=== PATIENT | female | born 1955 | race Caucasian/White ===

== ENCOUNTER 2017-02-02 01:33 | Emergency (ER) | payer OTHER ==
[~2017-02-02 01:33] MED LIST: NAPROXEN SODIU550 M1 PO; PERCOCET 5-3251 EACH PO
[2017-02-02 01:39] VITALS: BP 188/99
--- NOTE | 2017-02-02 01:40 | ED AMS/SEIZURE/WEAK/DIZZY ---
History of Present Illness General Chief Complaint: Altered Mental Status Stated Complaint: mental status change Source: patient Exam Limitations: pt uncooperative Vital Signs & Intake/Output Vital Signs & Intake/Output Vital Signs Date Time Temp Pulse Resp B/P Pulse O2 O2 Flow FiO2 Ox Delivery Rate 02/02 0146 98 Room Air 02/02 0139 95.8 123 16 188/99 98 Room Air Allergies Coded Allergies: Penicillins (Severe, ANAPHYLAXIS 06/20/16) Reconcile Medications Naproxen Sodium 550 MG TABLET 1 TAB PO BID PRN PAin Oxycodone HCl/Acetaminophen (Percocet 5-325 MG Tablet) 1 EACH TABLET 1 TAB PO Q4-6 PRN PAIN Triage Nurses Notes Reviewed? yes Onset: Abrupt Duration: hour(s): Timing: recent history Injury Environment: fci Severity: mild Modifying Factors: Improves With: rest. Associated Symptoms: belligerence HPI: 61 yo woman h/o chronic lyme, chest pain x 10 years, presents from police lock-up after being pulled over for a DUI. Per the police, she reported drinking at least 3 sambuca's. She was pulled over for erratic driving. At the time of her arrest, she was belligerent, aggressive. In the police station, she had an episode of twitching, did not lose consciousness, which lasted a few seconds. She also had an episode where she was not responding to questions but she appeared to be responsive. Upon arrival to the ED, she declines all intervention, including ekg, blood draw , monitors. She states, "I'm fine." Past History Medical History Any Pertinent Medical History? see below for history Neurological: NONE EENT: TMJ Cardiovascular: NONE Respiratory: NONE Gastrointestinal: NONE Hepatic: NONE Renal: NONE Musculoskeletal: fibromyalgia Psychiatric: NONE Endocrine: NONE Blood Disorders: NONE Cancer(s): NONE TRANSPORTATION JOB TITLES/Reproductive: NONE Surgical History Surgical History: none Psychosocial History What is your primary language Citizen Of [place] Family History Hx Contributory? No Review of Systems Review of Systems Constitutional: Reports: no symptoms. EENTM: Reports: no symptoms. Respiratory: Reports: no symptoms. Cardiovascular: Reports: no symptoms. GI: Reports: no symptoms. Genitourinary: Reports: no symptoms. Musculoskeletal: Reports: no symptoms. Skin: Reports: no symptoms. Neurological/Psychological: Reports: no symptoms. Hematologic/Endocrine: Reports: no symptoms. Immunologic/Allergic: Reports: no symptoms. All Other Systems: Reviewed and Negative Physical Exam Physical Exam General Appearance: well developed/nourished, no apparent distress Head: atraumatic, normal appearance Eyes: Bilateral: normal appearance. Ears, Nose, Throat: normal pharynx, normal ENT inspection Neck: normal inspection, supple, full range of motion Respiratory: normal breath sounds, chest non-tender, no respiratory distress, quiet respiration, lungs clear Cardiovascular: regular rate/rhythm, edema Gastrointestinal: normal bowel sounds, soft, non-tender Back: normal inspection, normal range of motion Extremities: normal range of motion Neurologic/Psych: no motor/sensory deficits, awake, alert, oriented x 3 Skin: intact, normal color, warm/dry Core Measures ACS in differential dx? No CVA/TIA Diagnosis: No Severe Sepsis Present: No Septic Shock Present: No Progress Differential Diagnosis: alcohol intoxication, I doubt sycnope/cardiac issues, primary neurological event like seizures. Plan of Care: Ms Gallego is adamant that she does not want any blood draws, ekg, breathylizer, or any intervention of any sort. Initial ED EKG: patient declines Departure Departure Disposition: HOME OR SELF CARE Condition: Stable Clinical Impression Primary Impression: Alcohol intoxication Referrals: PATIENT HAS NO PRIMARY CARE DR (PCP/Family) Departure Forms: Customer Survey General Discharge Information Comments 02/02/17, 1:39AM.... pt refuses blood work, ekg, ct scan. She is awake alert responding to questions appropriately. She is [facility] in the [facility]. 02/02/17, 3:34am.... pt well appearing and comfortable in ED... She continues to decline all interventions. Awake and alert, responds to questions.... pt discharged in company of police.
== END 2017-02-02 03:36 ==
LOC: ERH 01:33
DX: F10.129 Alcohol abuse with intoxication, unspecified (principal)

== ENCOUNTER 2018-04-16 09:32 | Emergency (ER) | payer OTHER ==
[~2018-04-16] VITALS: Ht 152.4 cm; Wt 63.5 kg
[2018-04-16 09:40] VITALS: BP 145/81
--- NOTE | 2018-04-16 10:05 | ED INFLUENZA/URI COMPLAINT ---
History of Present Illness General Chief Complaint: Upper Respiratory Sx/Fever Stated Complaint: URI Source: patient Exam Limitations: no limitations Vital Signs & Intake/Output Vital Signs & Intake/Output Vital Signs Date Time Temp Pulse Resp B/P B/P Pulse O2 O2 Flow FiO2 Mean Ox Delivery Rate 04/16 1134 101.1 04/16 1004 97 04/16 0940 101.1 110 18 145/81 98 Room Air Room Air Allergies Coded Allergies: Penicillins (Severe, ANAPHYLAXIS 06/20/16) Reconcile Medications Benzonatate (Tessalon Perle) 100 MG CAPSULE 1 CAP PO TID PRN COUGH Levofloxacin (Levaquin) 500 MG TABLET 1 TAB PO DAILY SINUSITIS Meloxicam (Mobic) 15 MG TABLET 1 TAB PO DAILY PAIN Triage Note: PT TO ED WITH C/O SINUS CONGESTION SINCE SATURDAY, I HAVEN'T HAD A BAD SINUS INFECTION FOR YEARS, TEMP IN TRIAGE 101.1, PT HAS NOT TAKEN ANYTHING FOR URI OR FEVER. Triage Nurses Notes Reviewed? yes Onset: Gradual Duration: constant Timing: recent history Severity: severe Severity Numbers: 7 HPI: Patient is a 63-year-old female with past medical history of hepatitis and fibromyalgia who presents emergency room with a three-day history of head congestion nasal congestion cough sore throat denies weakness and fatigue body aches Patient has not taken medications for symptoms. Positive sick contacts at home. No smoking history. Denies any chest pain arm pain jaw pain nausea vomiting leg swelling hemoptysis. (Johnathan Rushing) Past History Travel History Traveled to [place] past 21 day No Medical History Any Pertinent Medical History? 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 No (Johnathan Rushing) Review of Systems Review of Systems Constitutional: Reports: see HPI. EENTM: Reports: see HPI. Respiratory: Reports: see HPI. Cardiovascular: Reports: see HPI. GI: Reports: no symptoms. Genitourinary: Reports: no symptoms. Musculoskeletal: Reports: see HPI. Skin: Reports: no symptoms. Neurological/Psychological: Reports: no symptoms. Hematologic/Endocrine: Reports: no symptoms. Immunologic/Allergic: Reports: no symptoms. All Other Systems: Reviewed and Negative (Johnathan Rushing) Physical Exam Physical Exam General Appearance: no apparent distress, alert, comfortable Head: atraumatic Eyes: Bilateral: normal appearance. Ears, Nose, Throat: moist mucous membrane, hearing grossly normal, Tympanic normal, pharynx normal, nasal congestion, BILATERAL FRONTAL SINUS TENDERNESS Neck: normal inspection Respiratory: normal breath sounds, chest non-tender Cardiovascular: regular rate/rhythm Gastrointestinal: normal bowel sounds Extremities: normal inspection Neurologic/Psych: no motor/sensory deficits, awake Skin: intact Core Measures Sepsis Present: No Sepsis Focused Exam Completed? No (Johnathan Rushing) Progress Differential Diagnosis: influenza, meningitis, neutropenia, otitis, pneumonia, pharyngitis, sinusitis Plan of Care: Current Medications Sig/Nona Start time Last Medication Dose Stop Time Status Admin Acetaminophen 975 MG ONCE ONE 04/16 1130 CAN (Tylenol) 04/16 1131 Patient was noted to be febrile patient was hesitant on Tylenol to do hepatitis history Motrin was given. Patient has been in the emergency room for approximately 2 hours and requested to be prior to resolution of the fever. Due to HISTORY of present illness and exam finds patient has suspicion of sinusitis and URI Discussed chest x-ray results with patient Diagnostic Imaging: Viewed by Me: Radiology Read. CXR Impression: no acute abnormality, no infiltrates Initial ED EKG: none Comments: PATIENT: SOLANGE SALAZAR PRESENT AGE: 63 PATIENT ACCOUNT NO: [id number] : 55 LOCATION: [facility] ORDERING PHYSICIAN: Johnathan PRINCE SERVICE DATE: 04/16/181005 EXAM TYPE: RAD - XRY-CHEST XRAY, TWO VIEWS EXAMINATION: XR CHEST CLINICAL INFORMATION: Cough and chest congestion COMPARISON: None TECHNIQUE: 2 views of the chest were obtained. FINDINGS: Lungs are well expanded. No pulmonary consolidation or pleural effusion. Linear opacity of focal scar or discoid atelectasis within the lingula. Cardiomediastinal silhouette has normal size and contour. Bones are unremarkable. IMPRESSION: No evidence of pneumonia. DICTATED BY: Stalin Rose MD DATE/TIME DICTATED:04/16/186 MARKETING CONTENT COORDINATOR:SHEILA DATE/TIME TRANSCRIBED:04/16/18 / (Johnathan Rushing) Departure Departure Disposition: HOME OR SELF CARE Condition: Stable Clinical Impression Primary Impression: Sinusitis Secondary Impressions: URI (upper respiratory infection) Referrals: Melanie HARMON,Billy Chow (PCP/Family) Additional Instructions: As discussed begin the prescription of Levaquin for the full course, continue hydrating and plenty of fluids, begin the prescription TESSALON PERLES cough meloxicam for headaches and inflammation. If symptoms worsen return to emergency room, if no better in 2 days FOLLOW UP WITH YOUR DOCTOR. Prescriptions waiting at [facility] Departure Forms: Customer Survey General Discharge Information Prescriptions: Current Visit Scripts Levofloxacin (Levaquin) 1 TAB PO DAILY #10 TAB Benzonatate (Tessalon Perle) 1 CAP PO TID PRN COUGH #15 CAP Meloxicam (Mobic) 1 TAB PO DAILY #15 TAB (Johnathan Rushing) PA/SENIOR FIRMWARE ENGINEER Co-Sign Statement Statement: ED Attending supervision documentation- [] I saw and evaluated the patient. I have also reviewed all the pertinent lab results and diagnostic results. I agree with the findings and the plan of care as documented in the PA's/SENIOR FIRMWARE ENGINEER's documentation. [X] I have reviewed the ED Record and agree with the PA's/SENIOR FIRMWARE ENGINEER's documentation. [] Additions or exceptions (if any) to the PAs/SENIOR FIRMWARE ENGINEER's note and plan are summarized below: [] (Zach Galeana DO)
--- NOTE | 2018-04-16 11:10 | RADIOLOGY REPORT ---
EXAMINATION: XR CHEST CLINICAL INFORMATION: Cough and chest congestion COMPARISON: None TECHNIQUE: 2 views of the chest were obtained. FINDINGS: Lungs are well expanded. No pulmonary consolidation or pleural effusion. Linear opacity of focal scar or discoid atelectasis within the lingula. Cardiomediastinal silhouette has normal size and contour. Bones are unremarkable. IMPRESSION: No evidence of pneumonia.
[2018-04-16] MEDS ORDERED: MOBIC15 M1 PO (11:24)
[2018-04-16] MEDS ORDERED: LEVAQUIN500 M1 PO (11:24)
[2018-04-16] MEDS ORDERED: TESSALON PERLE100 M1 PO (11:24)
== END 2018-04-16 11:37 ==
LOC: ERH 09:32
DX: J06.9 Acute upper respiratory infection, unspecified (principal)
CPT/HCPCS: 71046